=== PATIENT | female | born 2000 | race Caucasian/White ===

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

== ENCOUNTER → 2021-04-19 | Outpatient (CLI) | payer OTHER ==
[~2021-04-19] MED LIST changes: -ESCI20TA; +ESCI20TA16
[2021-04-19 19:20] LABS: BASO % 0.2 % (0.0-1.0); EOS # 0.1 10^3/uL (0.0-0.5); EOS % 1.5 % (0.0-3.0); HEMATOCRIT 37.9 % (36.0-47.0); HEMOGLOBIN 12.6 g/dl (12.0-15.5); LYMPH # 2.2 10^3/uL (1.5-5.0); LYMPH % 27.3 % (24.0-44.0); MEAN CORPUSCULAR HEMOGLOBIN 31.1 pg (27.0-33.0); MEAN CORPUSCULAR HGB CONC 33.2 g/dl (32.0-36.5); MEAN CORPUSCULAR VOLUME 93.6 fl (80.0-96.0); MONO # 0.5 10^3/uL (0.0-0.8); MONO % 5.7 % (2.0-8.0); NEUTROPHILS # 5.2 10^3/uL (1.5-8.5); NEUTROPHILS % 65.2 % (36.0-66.0); PLATELET COUNT, AUTOMATED 247 10^3/uL (150-450); RED BLOOD COUNT 4.05 10^6/uL (4.00-5.40)
[2021-04-19 19:44] LABS: CHOLESTEROL RISK RATIO 3.153 (<5)
== END ==
LOC: M LAB 17:46
PROVIDERS: ATTEND Registered Nurse
DX: F64.9 Gender identity disorder, unspecified (principal)

== ENCOUNTER → 2021-08-28 | Outpatient (CLI) | payer OTHER ==
[2021-08-28 15:37] LABS: BASO % 0.5 % (0.0-1.0); EOS # 0.1 10^3/uL (0.0-0.5); EOS % 1.2 % (0.0-3.0); HEMATOCRIT 42.2 % (36.0-47.0); HEMOGLOBIN 14.3 g/dl (12.0-15.5); LYMPH # 1.8 10^3/uL (1.5-5.0); LYMPH % 26.9 % (24.0-44.0); MEAN CORPUSCULAR HEMOGLOBIN 31.8 pg (27.0-33.0); MEAN CORPUSCULAR HGB CONC 33.9 g/dl (32.0-36.5); MEAN CORPUSCULAR VOLUME 93.8 fl (80.0-96.0); MONO # 0.3 10^3/uL (0.0-0.8); MONO % 4.9 % (2.0-8.0); NEUTROPHILS # 4.4 10^3/uL (1.5-8.5); NEUTROPHILS % 66.2 % (36.0-66.0); PLATELET COUNT, AUTOMATED 243 10^3/uL (150-450); WHITE BLOOD COUNT 6.6 10^3/uL (4.0-10.0)
[2021-08-28 16:20] LABS: CHOLESTEROL RISK RATIO 3.05 (<5); FREE T4 0.96 NG/DL (0.78-1.33); THYROID STIMULATING HORMONE 0.474 uIU/ML (0.463-3.98)
== END ==
LOC: M LAB 15:12
PROVIDERS: ATTEND Registered Nurse
DX: F64.9 Gender identity disorder, unspecified (principal)

== ENCOUNTER 2023-11-12 18:29 | Emergency (ER) | payer OTHER, SELFPAY ==
[~2023-11-12] VITALS: Ht 162.6 cm; Wt 67.2 kg
[2023-11-12 18:29] VITALS: BP 131/79; TEMP 98.9; O2SAT 99
[2023-11-12] MEDS ORDERED: TEST200I15 (19:10)
== END 2023-11-12 21:46 | disposition home or self-care (01) ==
LOC: M ED 18:29 → EDSEX 18:29 → M ED 21:46
DX: S49.91XA Unspecified injury of right shoulder and upper arm, initial encounter (principal); W10.9XXA Fall (on) (from) unspecified stairs and steps, initial encounter; Y92.009 Unspecified place in unspecified non-institutional (private) residence as the place of occurrence of the external cause; Y93.9 Activity, unspecified; Y99.9 Unspecified external cause status; F41.9 Anxiety disorder, unspecified; F32.9 Major depressive disorder, single episode, unspecified; F17.200 Nicotine dependence, unspecified, uncomplicated

== ENCOUNTER → 2023-12-16 | Outpatient (CLI) | payer OTHER ==
[~2023-12-16] MED LIST changes: +TEST200I15
== END ==
LOC: M PLAIMG 14:53
PROVIDERS: ATTEND Orthopaedic Surgery
DX: M25.511 Pain in right shoulder (principal)

== ENCOUNTER → 2024-05-22 | Outpatient (REF) | payer OTHER | LOC: M WUC 19:02 | PROVIDERS: ATTEND Student in an Organized Health Care Education/Training Program | DX: R10.31 Right lower quadrant pain (principal) ==